=== PATIENT | female | born 1980 | race Hispanic/Latino ===

== ENCOUNTER 2018-04-05 01:38 | Emergency (ER) | payer BC, OTHER ==
[2018-04-05] MEDS ORDERED: SODIUM CHLORIDE 0.9% 1000ML 1,000 ML IV ONE (02:25)
[2018-04-05] MEDS ORDERED: ONDANSETRON HCL 4 MG/2 ML VIAL ONE (02:25)
[2018-04-05] MEDS ORDERED: FAMOTIDINE/PF 20 MG/2 ML VIAL IV ONE (02:26)
[2018-04-05] MEDS ORDERED: HYOSCYAMINE SULFATE 0.125 MG TAB.SUBL SL ONE (02:26)
[2018-04-05 02:44] LABS: BASOPHILS % (AUTO) 0.1 % (0.0-5.0); EOSINOPHILS % (AUTO) 0.6 % (0.0-8.0); LYMPHOCYTES % (AUTO) 9.5 % (21.0-51.0); MEAN CORPUSCULAR HEMOGLOBIN 30.5 pg (27.0-33.0); MEAN CORPUSCULAR HGB CONC 33.4 g/dL (32.0-36.0); MEAN CORPUSCULAR VOLUME 91.3 fL (79-99); MONOCYTES % (AUTO) 3.7 % (3.0-13.0); NEUTROPHILS % (AUTO) 86.1 % (40.0-77.0); PLATELET COUNT (AUTO) 171 K/uL (130-400); RED BLOOD CELL COUNT(AUTO) 4.59 MIL/uL (4.00-5.50); WHITE BLOOD COUNT (AUTO) 13.8 K/uL (4.8-10.8)
[2018-04-05 02:56] LABS: CREATININE 0.8 mg/dL (0.5-1.5); POTASSIUM 3.5 mmol/L (3.5-5.1)
[2018-04-05 03:01] LABS: ALBUMIN 3.1 g/dL (3.5-5.0); BILIRUBIN,TOTAL 0.4 mg/dL (0.2-1.0); TOTAL PROTEIN, SERUM 6.3 g/dL (6.0-8.3)
[2018-04-05 03:19] LABS: APPEARANCE,URINE Clear (CLEAR); BILIRUBIN,URINE Negative (NEGATIVE); COLOR,URINE Yellow (YELLOW); GLUCOSE, URINE (UA) Negative (NEGATIVE); HCG,QUAL RESULT NEGATIVE (NEGATIVE); KETONES,URINE Negative (NEGATIVE); LEUKOCYTE ESTERASE ,URINE Trace (NEGATIVE); NITRATE,URINE Negative (NEGATIVE); OCCULT BLOOD,URINE Negative (NEGATIVE); PROTEIN,URINE Negative (NEGATIVE)
[2018-04-05 03:33] LABS: BACTERIA,URINE Rare /HPF (None Seen); RBC,URINE 0-1 /HPF (0-1); SQUAMOUS EPITHELIAL CELL,UR 0-2 /HPF (0-2)
== END 2018-04-05 03:58 | disposition home or self-care (01) ==
LOC: EDH 01:38
DX: R10.13 Epigastric pain (principal); R11.2 Nausea with vomiting, unspecified; Z98.51 Tubal ligation status; Z90.49 Acquired absence of other specified parts of digestive tract
CPT/HCPCS: 36415; 80053; 81001; 81025; 83690; 85025; 96361; 96374; 96375; 99284; J2405; J3490; J7030

== ENCOUNTER 2021-03-17 16:07 | Emergency (ER) | payer BC, OTHER ==
[~2021-03-17] VITALS: Ht 160 cm; Wt 82.6 kg
[2021-03-17 16:32] LABS: BASOPHILS % (AUTO) 0.2 % (0.0-5.0); EOSINOPHILS % (AUTO) 0.2 % (0.0-8.0); HEMATOCRIT 49.5 % (36-48); LYMPHOCYTES % (AUTO) 13.3 % (21.0-51.0); MEAN CORPUSCULAR HGB CONC 33.5 g/dL (32.0-36.0); MEAN CORPUSCULAR VOLUME 89.5 fL (79-99); MONOCYTES % (AUTO) 4.7 % (3.0-13.0); NEUTROPHILS % (AUTO) 81.3 % (40.0-77.0); PLATELET COUNT (AUTO) 230 K/uL (130-400); RED BLOOD CELL COUNT(AUTO) 5.53 MIL/uL (4.00-5.50); WHITE BLOOD COUNT (AUTO) 11.2 K/uL (4.8-10.8)
[2021-03-17 16:39] LABS: CREATININE 0.9 mg/dL (0.5-1.5)
[2021-03-17 16:49] LABS: ALBUMIN 3.1 g/dL (3.5-5.0); BILIRUBIN,TOTAL 0.3 mg/dL (0.2-1.0); MAGNESIUM 1.7 mg/dL (1.80-2.40); TOTAL PROTEIN, SERUM 6.2 g/dL (6.0-8.3)
[2021-03-17 18:54] LABS: APPEARANCE,URINE Clear (CLEAR); BILIRUBIN,URINE Negative (NEGATIVE); COLOR,URINE Yellow (YELLOW); GLUCOSE, URINE (UA) Negative (NEGATIVE); KETONES,URINE Negative (NEGATIVE); LEUKOCYTE ESTERASE ,URINE Negative (NEGATIVE); NITRATE,URINE Negative (NEGATIVE); OCCULT BLOOD,URINE Large (NEGATIVE); PH,URINE 5.5 (5.0-8.0); PROTEIN,URINE Negative (NEGATIVE); UROBILINOGEN,URINE 0.2 mg/dL (0.2-1.0)
[2021-03-17 19:02] LABS: AMPHET/METH SCREEN,URINE NEGATIVE (NEGATIVE); BARBITURATE SCREEN, URINE NEGATIVE (NEGATIVE); BENZODIAZEPINES SCREEN,URINE NEGATIVE (NEGATIVE); CANNABINOID SCREEN,URINE NEGATIVE (NEGATIVE); COCAINE SCREEN,URINE NEGATIVE (NEGATIVE); OPIATE SCREEN,URINE NEGATIVE (NEGATIVE); PHENCYCLIDINE SCREEN,URINE NEGATIVE (NEGATIVE)
[2021-03-17 19:27] LABS: BACTERIA,URINE Rare /HPF (None Seen); RBC,URINE 0-1 /HPF (0-1); WBC,URINE 0-1 /HPF (0-1)
[2021-03-17 19:28] LABS: SQUAMOUS EPITHELIAL CELL,UR Few /HPF (0-2)
[2021-03-17] MEDS ORDERED: ACETAMINOPHEN 500 MG TABLET ONE (21:47)
[2021-03-17] MEDS ORDERED: ACETAMINOPHEN 500 MG TABLET PO ONE (22:30)
[2021-03-17 22:48] VITALS: BP 113/61
== END 2021-03-17 23:10 | disposition home or self-care (01) ==
LOC: EDH 16:07
DX: S00.11XA Contusion of right eyelid and periocular area, initial encounter (principal); E86.1 Hypovolemia; R55 Syncope and collapse; E66.9 Obesity, unspecified; Z68.32 Body mass index [BMI] 32.0-32.9, adult; X58.XXXA Exposure to other specified factors, initial encounter; Y93.89 Activity, other specified; Y92.89 Other specified places as the place of occurrence of the external cause; Y99.8 Other external cause status
CPT/HCPCS: 36415; 70450; 71045; 80053; 80305; 81001; 82550; 83735; 83874; 84484; 85025; 93005

== ENCOUNTER 2022-04-02 19:34 | Emergency (ER) | payer OTHER ==
[~2022-04-02] VITALS: Ht 160 cm; Wt 85.7 kg
[2022-04-02] MEDS ORDERED: TIZA4CAP8 PO (22:58)
[2022-04-02] MEDS ORDERED: TIZANIDINE HCL 2 MG TABLET ONE (23:07)
[2022-04-02 23:10] VITALS: BP 148/72
== END 2022-04-02 23:12 | disposition home or self-care (01) ==
LOC: EDH 19:34
DX: S13.4XXA Sprain of ligaments of cervical spine, initial encounter (principal); Z90.49 Acquired absence of other specified parts of digestive tract; V49.09XA Driver injured in collision with other motor vehicles in nontraffic accident, initial encounter; Y93.89 Activity, other specified; Y92.89 Other specified places as the place of occurrence of the external cause; Y99.8 Other external cause status
CPT/HCPCS: 36415; 70450; 72125; 84703

== ENCOUNTER 2022-10-28 23:06 | Emergency (ER) | payer OTHER ==
[~2022-10-28] VITALS: Ht 157.5 cm; Wt 88.5 kg
[~2022-10-28 23:06] MED LIST: TIZA4CAP8 PO
[2022-10-28 23:53] LABS: CREATININE 0.8 mg/dL (0.5-1.5); POTASSIUM 3.7 mmol/L (3.5-5.1)
[2022-10-28 23:57] LABS: BASOPHILS % (AUTO) 0.3 % (0.0-5.0); EOSINOPHILS % (AUTO) 0.3 % (0.0-8.0); HEMATOCRIT 46.7 % (36-48); LYMPHOCYTES % (AUTO) 31.3 % (21.0-51.0); MEAN CORPUSCULAR HGB CONC 32.8 g/dL (32.0-36.0); MEAN CORPUSCULAR VOLUME 91.6 fL (79-99); MONOCYTES % (AUTO) 8.3 % (3.0-13.0); NEUTROPHILS % (AUTO) 59.5 % (40.0-77.0); PLATELET COUNT (AUTO) 268 K/uL (130-400); RED CELL DISTRIBUTION WIDTH 12.9 % (11.0-15.5)
[2022-10-28 23:58] LABS: ALBUMIN 3.6 g/dL (3.5-5.0); TOTAL PROTEIN, SERUM 6.9 g/dL (6.0-8.3)
[2022-10-29 00:07] LABS: INR 0.93 (0.85-1.15); PROTHROMBIN TIME 9.8 SEC (9.6-11.6)
[2022-10-29 00:09] LABS: PARTIAL THROMBOPLASTIN TIME 26.5 SEC (26.3-35.5)
[2022-10-29 00:44] LABS: B-TYPE NATRIURETIC PEPTIDE 39 pg/mL (0-100)
[2022-10-29] MEDS ORDERED: IBUP-1493 PO (02:33)
[2022-10-29] MEDS ORDERED: ALBU90AE2 IH (02:34)
[2022-10-29 03:31] VITALS: BP 143/72; PULSE 72; RESP 20
[2022-12-20] MEDS ORDERED: METO-391 PO (09:57)
[2022-12-20] MEDS ORDERED: FLUT1AER IH (09:57)
[2022-12-27] MEDS ORDERED: CEFU500T67 PO (14:59)
== END 2022-10-29 03:33 | disposition home or self-care (01) ==
LOC: EDH 23:06
DX: R07.89 Other chest pain (principal); J45.909 Unspecified asthma, uncomplicated; Z20.822 Contact with and (suspected) exposure to COVID-19; Z90.49 Acquired absence of other specified parts of digestive tract; Z98.890 Other specified postprocedural states
CPT/HCPCS: 99285; 71045; 87635; 82550; 84484 ×2; 80053; 83880; 85025; 85378; 85610; 85730; 87804 ×2; 36415 ×2; 93005; 76705; C9803

== ENCOUNTER 2022-12-24 05:57 | Day surgery (SDC) | payer OTHER ==
[2022-12-20 09:35] LABS: BASOPHILS % (AUTO) 0.3 % (0.0-5.0); HEMATOCRIT 46.1 % (36-48); LYMPHOCYTES % (AUTO) 34.2 % (21.0-51.0); MEAN CORPUSCULAR HEMOGLOBIN 30.4 pg (27.0-33.0); MEAN CORPUSCULAR HGB CONC 32.8 g/dL (32.0-36.0); MEAN CORPUSCULAR VOLUME 92.9 fL (79-99); MONOCYTES % (AUTO) 6.2 % (3.0-13.0); NEUTROPHILS % (AUTO) 58.1 % (40.0-77.0); PLATELET COUNT (AUTO) 223 K/uL (130-400); RED BLOOD CELL COUNT(AUTO) 4.96 MIL/uL (4.00-5.50); RED CELL DISTRIBUTION WIDTH 12.7 % (11.0-15.5); WHITE BLOOD COUNT (AUTO) 5.9 K/uL (4.8-10.8)
[2022-12-20 09:37] VITALS: BP 129/61; PULSE 57; RESP 16
[2022-12-20 09:43] LABS: CREATININE 0.8 mg/dL (0.5-1.5); POTASSIUM 4.2 mmol/L (3.5-5.1)
[2022-12-20 09:47] LABS: INR 0.93 (0.85-1.15); PROTHROMBIN TIME 10.2 SEC (9.6-11.6)
[2022-12-20 09:48] LABS: PARTIAL THROMBOPLASTIN TIME 27.5 SEC (26.3-35.5)
[2022-12-20 10:19] LABS: B-TYPE NATRIURETIC PEPTIDE 37 pg/mL (0-100)
[~2022-12-24] VITALS: Ht 160 cm; Wt 88.2 kg
[2022-12-24] VITALS (12 sets, daily range): BP systolic 100–143; BP diastolic 53–88; PULSE 57–89; RESP 14–18
[~2022-12-24 05:57] MED LIST changes: +FLUT1AER IH; +METO-391 PO; -TIZA4CAP8 PO
[2022-12-24] MEDS ORDERED: LIDOCAINE HCL 2% VISCOUS 15 ML UDCUP ONE (07:05)
[2022-12-24] MEDS ORDERED: 0.9%NACL 1000ML 1,000 ML IV ONE (07:05)
[2022-12-24] MEDS ORDERED: MIDAZOLAM HCL 1 MG/ML 2ML VIAL ONE (07:59)
[2022-12-24] MEDS ORDERED: FENTANYL CITRATE PF 50 MCG/1 ML 2ML VIAL ONE (07:59)
[2022-12-24] MEDS ORDERED: NALOXONE HCL 0.4 MG/1 ML ML ONE (08:00)
[2022-12-24] MEDS ORDERED: FLUMAZENIL 0.1MG/1ML 5ML VIAL IV ONE (08:00)
[2022-12-27] MEDS ORDERED: CEFU500T67 PO (14:59)
== END 2022-12-24 10:05 | disposition home or self-care (01) ==
LOC: DAH 05:57
PROVIDERS: ATTEND Internal Medicine Interventional Cardiology
DX: I35.0 Nonrheumatic aortic (valve) stenosis (principal); I38 Endocarditis, valve unspecified; R55 Syncope and collapse; R42 Dizziness and giddiness; G60.8 Other hereditary and idiopathic neuropathies; M79.609 Pain in unspecified limb; I10 Essential (primary) hypertension; R01.1 Cardiac murmur, unspecified; I73.9 Peripheral vascular disease, unspecified; E66.01 Morbid (severe) obesity due to excess calories; Z68.34 Body mass index [BMI] 34.0-34.9, adult; Z79.01 Long term (current) use of anticoagulants
CPT/HCPCS: 80048; 83880; 85025; 85610; 85730; 36415 ×2; 93005; 93312; 84703; 93325; J3010; J7030; J2250; A4215; A4222; A4221; A4663; A4216; A4606; A4223 ×3; 99152; J2310; J3490; G0500